=== PATIENT | female | born 1960 | race Caucasian/White ===

== ENCOUNTER → 2019-10-15 09:16 | Outpatient (BNVA) | payer MEDICARE, MEDICAID, SELFPAY | PROVIDERS: Family Provider Nurse Practitioner Family; PCP Nurse Practitioner Family; Referring Provider Family Medicine; Visit Provider Orthopaedic Surgery | DX: M25.562 Pain in left knee (principal) | CPT/HCPCS: 73560; 73565 ==

== ENCOUNTER 2021-03-02 09:10 | Outpatient (CLI) | payer MEDICARE, MEDICAID, SELFPAY ==
--- NOTE | 2021-03-02 | MR_ITS ---
WS: [id number] MRI LUMBAR SPINE NONCONTRAST TECHNIQUE: Sagittal T1, T2 and STIR imaging. Axial T1 and T2 imaging. CLINICAL INFORMATION: BACK PAIN OF LUMBOSACRAL REGION WITH SCIATICA COMPARISON: MRI 2007 FINDINGS: Mild lumbar curve. No acute compression. Disc desiccation worse L5-S1 with endplate degenerative watson ges. This is similar in appearance to 2007. L1-L2: Normal. L2-L3: No significant disc bulging. Mild facet arthropathy. Spinal canal and foramen are patent. L3-L4: Small left foraminal protrusion with mild left foraminal narrowing. Slight encroachment on the exiting left L3 nerve root. Spinal canal and foramen are patent. Moderate facet arthropathy L4-L5: Mild annular bulging. Moderate facet arthropathy. Mild left and no significant right foraminal narrowing. L5-S1: Postoperative changes laminectomy defects. No recurrent disc extrusion. Mild disc bulging with osteophytic ridging unchanged in appearance since 2006. Mild bilateral bony foraminal narrowing. Mil d facet arthropathy. Visualized pelvic bony structures: Normal. Paravertebral soft tissues: Normal. MR/MR lumbar spine wo con* [id number] IMPRESSION: 1. Mild lumbar curve. No acute compression. No high-grade central canal stenos is. 2. Prior postoperative changes laminectomy defects with partial discectomy L5- S1. This is unchanged in appearance since 2006. No recurrent disc extrusion. Mi ld left L5-S1 foraminal narrowing. 3. Tiny left foraminal protrusion L3-4 with mild left foraminal narrowing and slight contact of the exiting left L3 nerve root progressed 4. since 2006. 5. Mild left L4-5 foraminal narrowing. 6. Moderate facet arthropathy L3-L4 and L4-L5.
== END 2021-03-02 09:11 | disposition home or self-care (01) ==
PROVIDERS: PCP Nurse Practitioner Family; Visit Provider Nurse Practitioner Family
DX: M54.40 Lumbago with sciatica, unspecified side (principal); M47.816 Spondylosis without myelopathy or radiculopathy, lumbar region; M51.26 Other intervertebral disc displacement, lumbar region
CPT/HCPCS: 72148

== ENCOUNTER 2021-09-29 09:08 | Outpatient (CLI) | payer MEDICARE, MEDICAID, SELFPAY ==
--- NOTE | 2021-09-29 09:52 | XR_ITS ---
WS: [id number] Lumbar spine, 3 views, 09/29/2021 Clinical Data: LUMBAR RADICULOPATHY Comparison: Lateral lumbar spine, 11/15/2006. Findings: The patient has had a posterior lumbar fusion with bilateral pedicle screws from L3 through S1 with c onnecting rods. There is a laminectomy at L5. Artificial disc spacers are present at L3-L4 and L4-L5. The transverse processes and SI joints are unremarkable. There are minimal anterior osteoarthritic sp urs at L1-L3. XR/XR lumbar spine 2-3V* [id number] Impression: 1. Posterior lumbar fusion L3-S1. 2. Laminectomy at L5 with artificial disc spacers at L3-L4 and L4-L5.
== END 2021-09-29 09:09 | disposition home or self-care (01) ==
PROVIDERS: PCP Nurse Practitioner Family; Visit Provider Nurse Practitioner Family
DX: M54.16 Radiculopathy, lumbar region (principal); T81.89XA Other complications of procedures, not elsewhere classified, initial encounter; M43.27 Fusion of spine, lumbosacral region; M96.1 Postlaminectomy syndrome, not elsewhere classified
CPT/HCPCS: 72100

== ENCOUNTER 2022-09-29 15:37 | Emergency (ER) | payer MEDICARE, MEDICAID, SELFPAY ==
[2022-09-29 15:49] VITALS: BP 112/74; PULSE 88; RESP 18; TEMP 37.2; O2SAT 92; BMI 43.5
--- NOTE | 2022-09-29 15:57 | ED_ITS ---
HPI - Extremity Injury (Lower) General: Chief Complaint: Extremity Injury, Lower Stated Complaint: Right ankle injury Time Seen by Provider: 09/29/22 15:57 Source: patient Mode of arrival: ambulatory (with limp) Limitations: no limitations History of Present Illness: Patient is a 62-year-old female who presents to ED today for evaluation of a right ankle injury that she sustained yesterday after she was walking in the [facility] parking lot and accidentally twisted her ankle. Patient states she is able to ambulate by hobbling . She has no other injuries or complaints at this time. complaint: ankle injury and foot injury Onset (ago): hour(s) Injury: Right: ankle and foot Type of Injury: inversion Place: street/outdoors Severity: moderate Relieving factors: immobilization Exacerbating factors: weight bearing, movement and palpation Associated symptoms: Reports no associated symptoms Other symptoms: none Review of Systems Musc: Reports: extremity pain (R foot), extremity swelling (R foot), joint pain (R ankle) and joint swelling (R ankle) Neuro: Denies: numbness in extremities or sensory changes [facility] ED PFSH: Medical History Arthritis of left knee Family History Father CAD (coronary artery disease) Other Hypertension Social History Smoking and tobacco status: current every day smoker (1ppd X41) cigarettes Alcohol intake: never Current occupational status: disabled Physical Exam Const: COMMON NORMALS: no acute distress, patient oriented x3, no limitations and alert Extremity: GENERAL: Yes normal exam except as noted RIGHT LOWER EXTREMITY: Yes foot & digits and Yes foot & digits OTHER: TTP and swelling noted mainly to R lateral malleolus without obvious deformity; she is tender to R lateral foot with some mild swelling noted here as well; cap refills, sensation, and DP/PT pulses are all normal/intact Neuro: COMMON NORMALS: patient oriented x3, moves all extremities, no focal motor deficits and no sensory deficits noted SENSORIUM/ORIENTATION: Yes alert Skin: TRAUMA: no lacerations or abrasions Course Vital Signs: Vital signs: Vital Signs Temperature 98.9 F 09/29/22 15:49 Pulse Rate 88 09/29/22 15:49 Respiratory Rate 18 09/29/22 15:49 Blood Pressure 112/74 09/29/22 15:49 Pulse Oximetry 92 09/29/22 15:49 Oxygen Delivery Me thod 09/29/22 15:49 MDM - Extremity Injury (Lower) Medical Decision Making Pt with small avulsion fx off lateral malleolus. Will splint and have her follow up with orthopedics. Recommend ice/elevation to help with swelling. Lab Data Radiology Impressions Ankle X-Ray 09/29/22 16:01 IMPRESSION: Soft tissue swelling with 2 small chip fractures arising lateral malleolus. Foot X-Ray 09/29/22 16:01 IMPRESSION: No acute bony abnormalities. Discharge Plan Discharge Patient Disposition: Home Clinical Impression: Avulsion fracture of lateral malleolus of left fibula Qualifiers: Encounter type: initial encounter Fracture type: closed Qualified Code(s): S82.62XA - Displaced fracture of lateral malleolus of left fibula, initial encounter for closed fracture Condition: Stable Prescriptions: New hydrocodone-acetaminophen 5-325 mg tablet 1 tab PO Q6H PRN (Reason: pain) Qty: 12 0RF No Action buspirone 15 mg tablet 15 mg PO BID Qty: 60 4RF Dexilant 60 mg capsule,biphase delayed releas 60 mg PO QDAY Qty: 30 5RF cyclobenzaprine 10 mg tablet 10 mg PO TID Qty: 90 4RF furosemide 20 mg tablet 20 mg PO QAM PRN (Reason: edema) Qty: 30 3RF hydroxyzine HCl 25 mg tablet 25 mg PO TID PRN (Reason: anxiety) Qty: 90 4RF potassium chloride 10 mEq tablet extended release 10 meq PO QDAY PRN (Reason: edema) Qty: 30 3RF venlafaxine 150 mg tablet extended release 24hr 150 mg PO QDAY Qty: 30 4RF Rx Instructions: TAKE WITH 37.5MG venlafaxine 37.5 mg capsule,extended release 24hr 37.5 mg PO QDAY Qty: 30 4RF cholecalciferol (vitamin D3) 1,250 mcg (50,000 unit) capsule 1,250 mcg PO .WEEKLY Qty: 4 4RF gabapentin 600 mg tablet 800 mg PO BID lisinopril 10 mg tablet 10 mg PO DAILY ropinirole 1 mg tablet 3 mg PO QDAY quetiapine 100 mg tablet 300 mg PO .hs fluticasone propionate 50 mcg/actuation spray,suspension 1 spray intranasal DAILY Rx Instructions: administer into each nostril hydrocodone-acetaminophen 5-325 mg tablet 1 tab PO Q8H PRN beclomethasone dipropionate 40 mcg/actuation HFA aerosol inhaler 2 spray intranasal DAILY Rx Instructions: administer into each nostril metoprolol succinate 25 mg tablet extended release 24 hr 12.5 mg PO DAILY Qty: 45 3RF montelukast 10 mg tablet See Rx Instructions .ROUTE .COMPLEX Qty: 30 3RF Dose Instruction: TAKE ONE TABLET BY MOUTH EVERY DAY Rx Instructions: TAKE ONE TABLET BY MOUTH EVERY DAY loratadine 10 mg tablet See Rx Instructions .ROUTE .COMPLEX Qty: 30 0RF Dose Instruction: TAKE ONE TABLET BY MOUTH DAILY Rx Instructions: TAKE ONE TABLET BY MOUTH DAILY Discharge Orders: Discharge ED (Routine); Ordered 09/29/22 Ordered By: Kasey Wray Referrals: Noemi Tinsley APN [Primary Care Provider] - Patient Instructions: Ankle Fracture (DC), Opioid Safety, Pain Management Activity Restrictions/Additional Instructions: As we discussed stay in your splint and use your crutches and/or/walker until seen by orthopedics. Case management should contact you shortly to set you up with this follow-up appointment. Ice and elevate the extremity to help with swelling. Coding Level of Care Code ED Machine Sweeper Brush Maker for Leona Moody
--- NOTE | 2022-09-29 16:01 | XRR_ITS ---
PROCEDURE INFORMATION: Exam: XR Right Ankle Exam date and time: 09/29/2022 4:44 PM Age: 62 years old Clinical indication: Injury or trauma; Fall; Sprain or strain; Ankle; Right; Additional info: Injury/swelling/pain TECHNIQUE: Imaging protocol: Radiologic exam of the right ankle. Views: 3 or more views. COMPARISON: No relevant prior studies available. FINDINGS: Bones/joints: Two small chip fractures arising from the inferior margin lateral malleolus largest of which measures 5 mm situated just lateral to the lateral malleolus. Moderate size calcaneal spurs arise from the posterior plantar margin of the calcaneus. Remaining osseous structures are unremarkable. Soft tissues: Prominent soft tissue swelling adjacent to the lateral malleolus. XR/XR ankle RT min 3V* [id number] IMPRESSION: Soft tissue swelling with 2 small chip fractures arising lateral malleolus.
--- NOTE | 2022-09-29 16:01 | XRR_ITS ---
PROCEDURE INFORMATION: Exam: XR Right Foot Exam date and time: 09/29/2022 4:44 PM Age: 62 years old Clinical indication: Injury or trauma; Fall; Blunt trauma; Foot; Right; Injury date: 09/28/22; Additional info: Injury/pain TECHNIQUE: Imaging protocol: Radiologic exam of the right foot. Views: 3 or more views. COMPARISON: No relevant prior studies available. FINDINGS: Bones/joints: Normal alignment. No fracture. Joint surfaces preserved. Small-moderate size spurs arising from the calcaneus. Soft tissues: Normal. XR/XR foot RT min 3V* [id number] IMPRESSION: No acute bony abnormalities.
--- NOTE | 2022-09-30 08:46 | DCPLANNER ---
Addendum entered by Tiarra Gill 10/07/22 07:47: Patient had a follow up appointment scheduled with ortho - patient did attend appointment. Original Note: manager corporate communications had message to schedule a follow up appointment for patient with ortho. manager corporate communications sent patients information to the front office staff at ortho. Patients information will be printed and reviewed. Clinic will call patient with appointment information.
== END 2022-09-29 17:37 | disposition home or self-care (01) ==
PROVIDERS: Emergency Provider Physician Assistant; PCP Nurse Practitioner Family
DX: S82.62XA Displaced fracture of lateral malleolus of left fibula, initial encounter for closed fracture (principal); F17.210 Nicotine dependence, cigarettes, uncomplicated; X50.1XXA Overexertion from prolonged static or awkward postures, initial encounter
CPT/HCPCS: 73610; 73630; 99283; E0114

== ENCOUNTER 2022-09-30 16:33 | Outpatient (CLI) | payer MEDICARE, MEDICAID, SELFPAY | END 2022-09-30 16:34 | disposition home or self-care (01) | LOC: SPT 16:33 | PROVIDERS: PCP Nurse Practitioner Family; Visit Provider Podiatrist Foot & Ankle Surgery | DX: Z46.89 Encounter for fitting and adjustment of other specified devices (principal); S82.62XD Displaced fracture of lateral malleolus of left fibula, subsequent encounter for closed fracture with routine healing; X58.XXXD Exposure to other specified factors, subsequent encounter; S82.61XA Displaced fracture of lateral malleolus of right fibula, initial encounter for closed fracture; X50.9XXA Other and unspecified overexertion or strenuous movements or postures, initial encounter; R23.4 Changes in skin texture | CPT/HCPCS: 97760; 99204; L4361 ==

== ENCOUNTER → 2022-10-11 13:30 | Outpatient (BNVA) | payer MEDICARE, MEDICAID, SELFPAY | PROVIDERS: PCP Nurse Practitioner Family; Visit Provider Podiatrist Foot & Ankle Surgery | DX: S82.61XD Displaced fracture of lateral malleolus of right fibula, subsequent encounter for closed fracture with routine healing (principal); X58.XXXD Exposure to other specified factors, subsequent encounter; R23.4 Changes in skin texture | CPT/HCPCS: 73610 ==

== ENCOUNTER 2022-10-11 14:46 | Outpatient (CLI) | payer MEDICARE, MEDICAID, SELFPAY | END 2022-10-11 14:47 | disposition home or self-care (01) | LOC: SPT 14:47 | PROVIDERS: PCP Nurse Practitioner Family; Visit Provider Podiatrist Foot & Ankle Surgery | DX: Z46.89 Encounter for fitting and adjustment of other specified devices (principal); S82.61XD Displaced fracture of lateral malleolus of right fibula, subsequent encounter for closed fracture with routine healing; X58.XXXD Exposure to other specified factors, subsequent encounter | CPT/HCPCS: 97760; 99214; L1902 ==

== ENCOUNTER → 2022-11-01 10:10 | Outpatient (BNVA) | payer MEDICARE, MEDICAID, SELFPAY | PROVIDERS: PCP Nurse Practitioner Family; Visit Provider Podiatrist Foot & Ankle Surgery | DX: S82.61XD Displaced fracture of lateral malleolus of right fibula, subsequent encounter for closed fracture with routine healing (principal); X58.XXXD Exposure to other specified factors, subsequent encounter; R23.4 Changes in skin texture | CPT/HCPCS: 73610; 99214 ==

== ENCOUNTER → 2022-11-23 12:51 | Outpatient (BNVA) | payer MEDICARE, MEDICAID, SELFPAY | PROVIDERS: PCP Nurse Practitioner Family; Visit Provider Podiatrist Foot & Ankle Surgery | DX: S82.61XD Displaced fracture of lateral malleolus of right fibula, subsequent encounter for closed fracture with routine healing (principal); R23.4 Changes in skin texture; W18.40XD Slipping, tripping and stumbling without falling, unspecified, subsequent encounter | CPT/HCPCS: 99213 ==

== ENCOUNTER → 2022-12-21 12:54 | Outpatient (BNVA) | payer MEDICARE, MEDICAID, SELFPAY | PROVIDERS: PCP Nurse Practitioner Family; Visit Provider Podiatrist Foot & Ankle Surgery | DX: S82.61XD Displaced fracture of lateral malleolus of right fibula, subsequent encounter for closed fracture with routine healing (principal); R23.4 Changes in skin texture; M21.611 Bunion of right foot; M21.612 Bunion of left foot; W18.40XD Slipping, tripping and stumbling without falling, unspecified, subsequent encounter | CPT/HCPCS: 99214 ==

== ENCOUNTER 2023-01-21 06:45 | Day surgery (SDC) | payer MEDICARE, MEDICAID, SELFPAY ==
[2023-01-20 13:14] VITALS: BMI 44.9
[2023-01-21] VITALS (9 sets, daily range): BP systolic 115–139; BP diastolic 58–87; PULSE 78–86; RESP 15–18; TEMP 36.3–36.6; O2SAT 90–100
--- NOTE | 2023-01-21 | XR_ITS ---
WS: [id number] INTRAOPERATIVE TECHNIQUE: 2 Spot fluoroscopic images for intraoperative purposes. FLUOROSCOPY TIME: 8 seconds Dose: 0.174 mGy CLINICAL INFORMATION: Modified right tamie. OR pic. COMPARISON: None. FINDINGS: Intraoperative changes osteotomy with bunionectomy 1st metatarsal. Localization wires 1st metatarsal head. XR/XR foot RT 2V [id number] IMPRESSION: Images obtained for intraoperative purposes.
--- NOTE | 2023-01-21 06:21 | P.HP_ITS ---
Providers/Chief Complaint Primary Care Provider: Noemi Tinsley APN Chief Complaint: M21.611 History of Present Illness Pleasant 62 YOF patient presenting to the clinic for surgical consultation on her bunion. Right bunion is painful daily.? Is no longer alleviated by wearing wide accommodative shoes, NSAIDs, stretching and orthotics.? Would like to discuss surgical options. She describes pain as sharp stabbing with activities such as standing and walking and everyday living. Patient denies any subjective nausea, vomiting, fever, chills, shortness of breath or chest pain. Review of Systems General: Reports: 10 or more systems reviewed and unremarkable except in HPI and below Const: Denies: fever(s) or chills Card: Denies: chest pain or palpitations Resp: Denies: productive cough GI: Denies: abdominal pain, nausea or vomiting : Denies: flank pain Musc: Reports: extremity swelling, joint pain, joint stiffness, limited range of motion and deformity Skin/Breast: Reports: nail changes and change in hair; Denies: rash or sores Neuro: Reports: numbness in extremities, sensory changes and difficulty walking Psych: Denies: suicidal ideation Christopher/Lymph: Denies: easy bruising Medications/Allergies Home Medications Medication Instructions Recorded Confirmed Last Taken Type buspirone 15 mg tablet 15 mg PO BID #60 tabs 08/29/19 01/20/23 01/20/23 Rx cholecalciferol (vitamin D3) 1,250 1,250 mcg PO .WEEKLY #4 caps 08/29/19 01/20/23 01/19/23 Rx mcg (50,000 unit) capsule cyclobenzaprine 10 mg tablet 10 mg PO TID #90 tabs 08/29/19 01/20/23 01/20/23 Rx dexlansoprazole 60 mg 60 mg PO QDAY #30 caps 08/29/19 01/20/23 01/20/23 Rx capsule,biphase delayed release (Dexilant) furosemide 20 mg tablet 20 mg PO QAM PRN edema #30 tabs 08/29/19 01/20/23 U nknown Rx potassium chloride 10 mEq 10 meq PO QDAY PRN edema #30 tabs 08/29/19 01/20/23 Unknown Rx tablet,extended release venlafaxine 150 mg tablet,extended 150 mg PO QDAY #30 tabs 08/29/19 01/20/23 01/20/23 Rx release 24 hr venlafaxine 37.5 mg 37.5 mg PO QDAY #30 caps 08/29/19 01/20/23 01/20/23 Rx capsule,extended release 24 hr beclomethasone dipropionate 40 2 spray intranasal DAILY 06/23/21 01/20/23 Unknown History mcg/actuation nasal HFA inhaler fluticasone propionate 50 1 spray intranasal DAILY 06/23/21 01/20/23 Unknown History mcg/actuation nasal spray,suspension gabapentin 600 mg tablet 800 mg PO BID 06/23/21 01/20/23 01/20/23 History metoprolol succinate 25 mg 12.5 mg PO DAILY #45 tabs 06/23/21 01/20/23 01/20/23 Rx tablet,extended release 24 hr quetiapine 100 mg tablet 300 mg PO DAILY 06/23/21 01/20/23 01/20/23 History ropinirole 1 mg tablet 3 mg PO QDAY 06/23/21 01/20/23 01/19/23 History Cam Boot to the Right #1 ea 09/30/22 12/21/22 Unknown Rx ASO to the right #1 ea 10/11/22 12/21/22 Unknown Rx mupirocin 2 % topical ointment 1 applic topical TID #22 grams 10/11/22 01/20/23 Unknown Rx loratadine 10 mg tablet 10 mg PO DAILY 01/20/23 01/20/23 01/20/23 History Allergies Allergy/AdvReac Type Severity Reaction Status Date / Time adhesive Allergy Mild Unknown Verified 01/20/23 13:24 Penicillins Allergy rash Verified 01/20/23 13:06 PFSH PFSH: Medical History Arthritis of left knee Family History Father CAD (coronary artery disease) Other Hypertension Social History Smoking and tobacco status: current every day smoker (1ppd X41) cigarettes Alcohol intake: never Substance/Drug Use: never Current occupational status: disabled Vital Signs Weight: Weight last 48 hrs Weight 278 lb Physical Exam Narrative: EXAM NARRATIVE: Patient is alert and oriented ?3 and in no acute distress.? The following is a focused bilateral lower extremity exam. VASCULAR: Dorsalis pedis and posterior tibial arteries palpable +2.? Capillary refill time less than 3 seconds to the distal hallux bilaterally. Calf is supple and nontender proximally and distally.? No pedal edema appreciated.? Pedal hair growth present. NEUROLOGICAL: Epicritic and protopathic sensations grossly intact to the lower extremities.? +2 Achilles tendon reflex noted bilaterally.? Negative Tinel sign upon percussion of lower extremity nerves. DERMATOLOGICAL: No open wounds to the bilateral lower extremity.? Previously documented fissure at the right heel is healed. MUSCULOSKELETAL: No pain to palpation at the distal aspect of the right lateral malleolus.? Negative anterior drawer sign and negative talar tilt test to the right ankle.? No palpable mass along the course of the plantar fascia appreciated.? No pain to palpation along the course of the bilateral Achilles tendon.? No pain to palpation along the course posterior tibial tendon or per murphy tendons.? No pain with pizx-en-smth compression of calcaneus, bilaterally.? Muscle strength is 5/5 in all 3 cardinal planes pain-free without guarding to the foot and ankle, bilaterally.? Bunion right greater than left.? Pain to palpation at the medial aspect of the first metatarsal phalangeal joint osseous prominence at the right foot.? Right hallux is not track bound.? First metatarsal phalangeal joint dorsiflexion is 50 degrees to the right foot. CARDIOVASCULAR: S1, S2, normal rate, normal rhythm.? Dorsalis pedis and posterior tibial arteries palpable. LUNGS: Clear to auscltation, no use of acessory muscles, no crackles or wheezes. A&P Assessment and plan (1) Bilateral bunions: (2) Right foot pain: Plan Patient would like to discuss surgical options for her right bunion.? No longer responding to conservative treatments as listed in HPI.? I reviewed at length with the patient, the risks, potential complications, benefits, alternatives, expectations, and typical outcomes associated with the surgery. The risks and potential complications were explained in detail, including but not limited to infection, wound dehiscence or soft tissue complications, bleeding and hematoma, chronic edema, neuritis or nerve damage producing numbness or chronic pain, CRPS, failure to relieve pain or worsening pain, thick / painful / unsightly scar, limited motion / stiffness, malposition, delayed union, malunion, or nonunion, fracture, reaction to implants, anesthetic complications, venous thromboembolism, and deformity recurrence.? I discussed the notion of no regrets with the patient as it pertains to complications and outcomes. The patient seemed to understand the nature of the proposed care and required convalescence. They asked appropriate questions, answered to their satisfaction. They are aware no guarantees can be made as to a satisfactory outcome and they understand there may be other possible unforeseen complications or outcomes not listed here that will be treated accordingly if they arise. There were no written or implied guarantees given to the patient. They gave informed consent to proceed. Right Henderson/Sha scheduled January 21. Outpatient, braden CAICEDO, supine, 60 minutes. Coding Level of Care Code Acute Code for Chg Fwd Diagnoses Bilateral bunions M21.611; M21.612 Right foot pain M79.671
[2023-01-21] MEDS: sodium chloride 0.9% 1,000 ML 30 ML IV (07:15)
--- NOTE | 2023-01-21 07:58 | P.OP_ITS ---
Operative Report Date of procedure: January 21, 2023 Pre-op diagnosis: Right bunion Post-op diagnosis: Same Procedure done: Modified right Santiago bunionectomy [id number] Implants: 3.0 millimeter screw, 3-0 Vicryl, 4-0 Vicryl, 4 nylon Surgeon: Hu Pulido D.P.M. Daytime Babysitter: Tammy Coronado Estimated blood loss: Less than 5 35 IV fluids: 0 Urine output: None Complications: None Brief History: Patient would like to discuss surgical options for her right bunion.? No longer responding to conservative treatments as listed in HPI.? I reviewed at length with the patient, the risks, potential complications, benefits, alternatives, expectations, and typical outcomes associated with the surgery. The risks and potential complications were explained in detail, including but not limited to infection, wound dehiscence or soft tissue complications, bleeding and hematoma, chronic edema, neuritis or nerve damage producing numbness or chronic pain, CRPS, failure to relieve pain or worsening pain, thick / painful / unsightly scar, limited motion / stiffness, malposition, delayed union, malunion, or nonunion, fracture, reaction to implants, anesthetic complications, venous thromboembolism, and deformity recurrence.? I discussed the notion of no regrets with the patient as it pertains to complications and outcomes. The patient seemed to understand the nature of the proposed care and required convalescence. They asked appropriate questions, answered to their satisfaction. They are aware no guarantees can be made as to a satisfactory outcome and they understand there may be other possible unforeseen complications or outcomes not listed here that will be treated accordingly if they arise. There were no written or implied guarantees given to the patient. They gave informed consent to proceed. Procedure: Under mild sedation the patient was brought to the operating room and remained o n the gurney in supine position. A timeout was performed. Anesthesia was then administered by the anesthesia service. Local anesthesia was injected by myself consisting of 20 cc of 0.5% Marcaine plain in a right Wright block fashion. Additional 10 cc of Exparel administered in a grid like fashion subcutaneously proximal to the operative site. Well-padded pneumatic tourniquet was applied to the right ankle. The right lower extremity was scrubbed, prepped and draped utilizing normal aseptic technique. The right foot was exanguinated with an Esmarch bandage and the tourniquet inflated to 250 mmHg. Attention was directed to the right foot where hallux valgus was appreciated with osseous prominence at the first metatarsal phalangeal joint. A stab incision was performed at the right first intermetatarsal space at the level of lateral flare of the proximal phalanx base and a lateral release was performed followed by saline flush and closure of skin with 4-0 nylon. Attention was then directed to the dorsal medial aspect of the right first metatarsal phalangeal joint where a linear longitudinal incision was made medial and parallel to the extensor hallucis longus tendon. Incision was carried down through subcutaneous tissue to the layer of joint capsule utilizing sharp and blunt technique. Care was taken to retract and preserve neurovascular and tendinous structures. All bleeders were ligated and cauterized as necessary. Linear capsular incision was performed in the bony hypertrophy at the medial aspect of the right first metatarsal head was resected utilizing a sagittal saw. A K wire was inserted from medial to lateral within the first metatarsal head to act as an access guide. Sagittal saw was then utilized to perform a modified chevron osteotomy with the apex oriented distally through and through from medial to lateral to first metatarsal head. The first metatarsal head was translated and impacted onto the first metatarsal laterally in a more anatomically corrected position and temporary fixated followed by screw fixation with 3.0 screw oriented from dorsal proximal to plantar distal, stress riser was encountered and the screw was removed and passed from the operative field. A second screw was then oriented utilizing standard AO technique from dorsal distal to proximal plantar with excellent bony apposition and compression noted. No stress riser was encountered with this screw fixation. Temporary fixation was removed, remaining medial shelf was transected and all rough edges were smoothed utilizing a hand rasp. The incision was irrigated with copious amounts of sterile saline solution. Intraoperative fluoroscopy in the AP, oblique and lateral view confirmed that the hardware did not violate the articular surface. There was smooth range of motion appreciated at the right first metatarsal phalangeal joint. The incision was then irrigated further with saline solution and the capsular structure was debulked and closed utilizing 3-0 Vicryl, subcutaneous tissue reapproximated 4-0 Vicryl and skin with 4-0 nylon. The incision was dressed with Adaptic, sterile 4 x 4's, Kerlix and Garth wrap. Cam boot was applied to the right lower extremity and the tourniquet was deflated with a prompt hyperemic response noted to the distal digits of the right foot. Patient tolerated the procedure and anesthesia well and was transferred to the PACU with vital signs stable and vascular status intact. Following a period of postoperative monitoring she will be discharged home was given at home care instructions, scheduled follow-up and my cell phone number to contact with any postoperative questions or concerns.
--- NOTE | 2023-01-21 07:58 | W.PM.OPSUD ---
Surgery/Procedure H&P Update DATE OF PROCEDURE: January 21, 2023 DATE H&P PERFORMED: 01/21/23 CHANGES TO PREVIOUS DOCUMENTATION: none PREOP DIAGNOSIS: Right bunion PLANNED PROCEDURE: Operation Date: 01/21/23 08:25 Proposed Procedures p ?Modified right Santiago and Sha bunionectomy 84910,M21.611(Right) - Hu Pulido DPM s Sha Bunionectomy(Right) - Hu Pulido DPM
[2023-01-21] MEDS: clindamycin 600 MG/50 ML PREMIX 100 MG IV (08:09)
--- NOTE | 2023-01-21 09:03 | P.ANESASSM_ITS ---
Pre-Anesthetic Assessment Height/Weight: Height 1.68 m Weight 126.099 kg O2 Del Method Room Air 01/21/23 07:05 Preop Diagnosis: Right bunion Operation Date: 01/21/23 08:25 Proposed Procedures p ?Modified right Santiago and Sha bunionectomy 31304,M21.611(Right) - Hu uPlido DPM s Sha Bunionectomy(Right) - Hu Pulido DPM Familial anesthetic complications: none Was Beta Preston taken within 24 hours: N/A Was Clonidine taken within 24 hours: N/A Last intake: Intake Last Liquid Date 01/20/23 Last Liquid Time 19:00 Last Solid Date 01/20/23 Last Solid Time 19:00 Social Tobacco and No alcohol Exam alert, oriented x 3 and regular rate & rhythm Airway Submandibular: within normal limits Cervical ROM: within normal limits Mallampati: Class II Dentition: false Pulmonary Chronic Obstructive Pulmonary Disease GI Gastroesophageal Reflux Disease Metabolic Morbid Obesity [facility] [place] Osteoarthritis/DJD Neuropsych Anxiety and Depression Anesthetic Plan ASA status: 3 Anesthesia: Choice Medications/Allergies Home Medications Medication Instructions Recorded Confirmed Last Taken Type buspirone 15 mg tablet 15 mg PO BID #60 tabs 08/29/19 01/20/23 01/20/23 Rx cholecalciferol (vitamin D3) 1,250 1,250 mcg PO .WEEKLY #4 caps 08/29/19 01/20/23 01/19/23 Rx mcg (50,000 unit) capsule cyclobenzaprine 10 mg tablet 10 mg PO TID #90 tabs 08/29/19 01/20/23 01/20/23 Rx dexlansoprazole 60 mg 60 mg PO QDAY #30 caps 08/29/19 01/20/23 01/20/23 Rx capsule,biphase delayed release (Dexilant) furosemide 20 mg tablet 20 mg PO QAM PRN edema #30 tabs 08/29/19 01/20/23 Unknown Rx potassium chloride 10 mEq 10 meq PO QDAY PRN edema #30 tabs 08/29/19 01/20/23 Unknown Rx tablet,extended release venlafaxine 150 mg tablet,extended 150 mg PO QDAY #30 tabs 08/29/19 01/20/23 01/20/23 Rx release 24 hr venlafaxine 37.5 mg 37.5 mg PO QDAY #30 caps 08/29/19 01/20/23 01/20/23 Rx capsule,extended release 24 hr beclomethasone dipropionate 40 2 spray intranasal DAILY 06/23/21 01/20/23 Unknown History mcg/actuation nasal HFA inhaler fluticasone propionate 50 1 spray intranasal DAILY 06/23/21 01/20/23 Unknown History mcg/actuation nasal spray,suspension gabapentin 600 mg tablet 800 mg PO BID 06/23/21 01/20/23 01/20/23 History metoprolol succinate 25 mg 12.5 mg PO DAILY #45 tabs 06/23/21 01/20/23 01/20/23 Rx tablet,extended release 24 hr quetiapine 100 mg tablet 300 mg PO DAILY 06/23/21 01/20/23 01/20/23 History ropinirole 1 mg tablet 3 mg PO QDAY 06/23/21 01/20/23 01/19/23 History Cam Boot to the Right #1 ea 09/30/22 12/21/22 Unknown Rx ASO to the right #1 ea 10/11/22 12/21/22 Unknown Rx mupirocin 2 % topical ointment 1 applic topical TID #22 grams 10/11/22 01/20/23 Unknown Rx loratadine 10 mg tablet 10 mg PO DAILY 01/20/23 01/20/23 01/20/23 History Allergies Allergy/AdvReac Type Severity Reaction Status Date / Time adhesive Allergy Mild Unknown Verified 01/20/23 13:24 Penicillins Allergy rash Verified 01/20/23 13:06 Current Medications Generic Name Dose Route Start Last Admin Trade Name Freq PRN Reason Stop Dose Admin Sodium Chloride 1,000 mls @ 30 mls/hr 01/21/23 07:00 01/21/23 07:15 Sodium Chloride 0.9% IV 01/22/23 06:59 30 mls/hr .Q24H SIVA Administration PFSH Anesthesia Medical History Arthritis of left knee Family History Father CAD (coronary artery disease) Other Hypertension Social History Smoking and tobacco status: current every day smoker (1ppd X41) cigarettes Alcohol intake: never Substance/Drug Use: never Current occupational status: disabled Data Anesthesia Cardiac Studies: Cardiac Event Monitor 06/02/21
--- NOTE | 2023-01-21 09:12 | PC.NURSE ---
Pt arrived to PACU, resting comfortably, O2 at 6L/min via simple mask in place. Dressing and boot to right foot C/D/I, right toes p/w/d, cap refill < 3 seconds. FOB elevated.
--- NOTE | 2023-01-21 09:25 | PC.NURSE ---
O2 sats between 90-92% on room air, wheezing noted. New orders received and nebulizer administered. Will monitor for effectiveness.
[2023-01-21] MEDS: albuterol 2.5 mg/3 mL Neb INHALATION (09:28)
--- NOTE | 2023-01-21 14:07 | ANE.PACU2 ---
Inpatient post-anesthesia follow up: Airway intact: Yes Vital signs: Temperature 98 F Pulse Rate 85 Respiratory Rate 16 Blood Pressure 120/68 Pulse Oximetry 95 Oxygen Delivery Me thod Room Air Oxygen Flow Rate 6 Fraction of Inspir ed Oxygen Hydration adequate: Yes Nausea and vomiting: No Pain level: 2 Mental status: Baseline
== END 2023-01-21 10:27 | disposition home or self-care (01) ==
PROVIDERS: PCP Nurse Practitioner Family; Visit Provider Podiatrist Foot & Ankle Surgery
PROC: (CPT 28296; principal; 2023-01-21 08:15)
DX: M21.611 Bunion of right foot (principal); F17.210 Nicotine dependence, cigarettes, uncomplicated; J44.9 Chronic obstructive pulmonary disease, unspecified; K21.9 Gastro-esophageal reflux disease without esophagitis; E66.01 Morbid (severe) obesity due to excess calories; Z68.41 Body mass index [BMI] 40.0-44.9, adult; F32.A Depression, unspecified; F41.9 Anxiety disorder, unspecified
CPT/HCPCS: 28299; 73620; 76000; C1713; C9290; J2704; J3010; J3490; J7030; J7613

== ENCOUNTER → 2023-02-07 15:14 | Outpatient (BNVA) | payer MEDICARE, MEDICAID, SELFPAY | PROVIDERS: PCP Nurse Practitioner Family; Visit Provider Podiatrist Foot & Ankle Surgery | DX: Z98.890 Other specified postprocedural states (principal); M21.611 Bunion of right foot | CPT/HCPCS: 73630; 99024 ==

== ENCOUNTER → 2023-02-21 13:25 | Outpatient (BNVA) | payer MEDICARE, MEDICAID, SELFPAY | PROVIDERS: PCP Nurse Practitioner Family; Visit Provider Podiatrist Foot & Ankle Surgery | DX: Z98.890 Other specified postprocedural states (principal); M21.611 Bunion of right foot | CPT/HCPCS: 73630; 99024 ==

== ENCOUNTER → 2023-03-07 15:29 | Outpatient (BNVA) | payer MEDICARE, MEDICAID, SELFPAY | PROVIDERS: PCP Nurse Practitioner Family; Visit Provider Podiatrist Foot & Ankle Surgery | DX: Z98.890 Other specified postprocedural states (principal); M21.611 Bunion of right foot | CPT/HCPCS: 73630; 99024 ==

== ENCOUNTER → 2023-06-06 09:29 | Outpatient (BNVA) | payer MEDICARE, MEDICAID, SELFPAY | PROVIDERS: PCP Nurse Practitioner Family; Visit Provider Podiatrist Foot & Ankle Surgery | DX: M21.612 Bunion of left foot (principal); M20.42 Other hammer toe(s) (acquired), left foot | CPT/HCPCS: 99214 ==

== ENCOUNTER 2023-06-10 07:08 | Day surgery (SDC) | payer MEDICARE, MEDICAID, SELFPAY ==
[2023-06-10] VITALS (7 sets, daily range): BP systolic 94–117; BP diastolic 52–70; PULSE 75–84; RESP 16–18; TEMP 36.2–36.8; O2SAT 92–97; BMI 43.5
--- NOTE | 2023-06-10 | XRR_ITS ---
PROCEDURE INFORMATION: Exam: XR Left Foot Exam date and time: 06/10/2023 9:35 AM Age: 63 years old Clinical indication: Condition or disease; Other: Bunectomy; Additional info: Left foot, bunectomy, or pic TECHNIQUE: Imaging protocol: Radiologic exam of the left foot. Views: 1 or 2 views. COMPARISON: No relevant prior studies available. FINDINGS: Bones/joints: A single AP view was obtained of the distal left foot including mid to distal metatarsals and phalanges. Postsurgical changes of bunionectomy at the distal 1st metatarsal with screw fixation. Satisfactory or anatomic alignment and position. No other significant osseous or joint space abnormality. Soft tissues: Mild soft tissue swelling. XR/XR foot LT 2V [id number] IMPRESSION: Postsurgical changes of the left distal 1st metatarsal related to bunionectomy, as noted above.
--- NOTE | 2023-06-10 06:43 | P.HPUD_ITS ---
Surgery/Procedure H&P Update DATE OF PROCEDURE: June 10, 2023 DATE H&P PERFORMED: 01/21/23 H&P UPDATE INFORMATION: I have reviewed H&P completed within last 30 days, I have examined patient prior to procedure, No changes to prior documentation and H&P is in [facility] [place] EMR on date indicated PLANNED PROCEDURE: Operation Date: 06/10/23 08:40 Proposed Procedures p Left bunionectomyAustin [id number],M21.612,m20.42,m24.575(Left) - Hu Pulido DPM s double osteotomyAkin(Left) - Hu Pulido DPM s Flexor tendon transfer left foot(Left) - Hu Pulido DPM s Left second hammertoe correction?(Left) - Hu Pulido DPM
--- NOTE | 2023-06-10 06:43 | PM.OP ---
Operative Report Date of procedure: June 10, 2023 Pre-op diagnosis: Left bunion Left hallux valgus Left second hammertoe Flexor tendon contracture left foot Post-op diagnosis: Same Procedure done: Modified Santiago bunionectomy, left foot. CPT code 86065 Left foot flexor tendon transfer. CPT code 01432 Left second hammertoe correction. CPT code 73398 Implants: 3-0 Vicryl, 4-0 Vicryl, 4-0 nylon Wilbur hammer tube Wilbur 3 mm headed partially-threaded cannulated screw Specimens removed/disposition: None Pathology: None Surgeon: Hu Pulido DPM Emblem Drawer In: Amie Estimated blood loss: 5 33 IV fluids: 0 Urine output: 0 Complications: None Brief History: Established 63 year old female patient presenting to clinic to update H&P for her surgery on 06/10/23.? Patient reports she is going to have her bunion to left surgically fixed.? Patient is scheduled for an left bunionectomy and second hammertoe correction this Tuesday.? Has pain daily, has failed conservative treatments of accommodative shoe gear, padding, spacing, activity modifications, orthotics, stretching and NSAIDs. I reviewed at length with the patient, the risks, potential complications, benefits, alternatives, expectations, and typical outcomes associated with the surgery. The risks and potential complications were explained in detail, including but not limited to infection, wound dehiscence or soft tissue complications, bleeding and hematoma, chronic edema, neuritis or nerve damage producing numbness or chronic pain, CRPS, failure to relieve pain or worsening pain, thick / painful / unsightly scar, limited motion / stiffness, malposition, delayed union, malunion, or nonunion, fracture, reaction to implants, anesthetic complications, venous thromboembolism, and deformity recurrence.? I discussed the notion of no regrets with the patient as it pertains to complications and outcomes. The patient seemed to understand the nature of the proposed care and required convalescence. They asked appropriate questions, answered to their satisfaction. They are aware no guarantees can be made as to a satisfactory outcome and they understand there may be other possible unforeseen complications or outcomes not listed here that will be treated accordingly if they arise. There were no written or implied guarantees given to the patient. They gave informed consent to proceed. Planned procedure left modified Santiago bunionectomy with possible Sha osteotomy, left second hammertoe correction with arthrodesis of the PIPJ and flexor tendon transfer. Procedure: Under mild sedation patient was brought to the operating room and remained on the gurney in supine position. A timeout was performed. Anesthesia was then administered by the anesthesia service. Local anesthesia was injected by myself consisting of 20 cc of 0.5% Marcaine plain in a Wright block and second ray block fashion to the left foot. Additional 10 cc of Exparel was infiltrated at the operative site subcutaneously in a grid like fashion. Well-padded pneumatic tourniquet was applied to the left high calf. The left lower extremity was then scrubbed, prepped and draped utilizing normal aseptic technique. Attention to was directed the bunion deformity at the left foot. A dorsomedial incision was made over the first metatarsophalangeal joint of the left foot. Careful dissection was carried out, preserving the dorsal sensory nerve. The prominent bunion deformity was exposed, and an osteotomy of the first metatarsal head was performed using a surgical saw. This allowed for realignment of the metatarsal head to correct the valgus deformity. Temporary fixation was applied while preparing for the permanent fixation. A Wilbur 3 mm screw was then utilized to securely fix the osteotomy. The position and stability of the screw were confirmed with fluoroscopy, ensuring proper alignment and fixation. Attention was then turned to the soft tissue balancing. The extensor hallucis brevis tendon was identified and released to balance the dorsal aspect of the joint. Additionally, a lateral release was performed due to the tightness of the lateral structures, taking care to protect the lateral sesamoid. Intraoperative C arm confirmed hardware did not violate the left first metatarsal phalangeal joint on the AP, oblique and lateral views. Smooth range of motion of the left first metatarsal for joint was appreciated intraoperatively. The incision was irrigated with saline solution and closed in a layered fashion with capsule closed with 3-0 Vicryl, subcutaneous tissue with 4-0 Vicryl and skin with 4-0 nylon. Attention was directed to the dorsum of the left second toe, second toe had a sagittal plane contracture. Dorsal incision made over the proximal interphalangeal joint of the left second toe. Dissection was carried down to the extensor apparatus, and care was taken to protect the neurovascular structures. The extensor tendon was identified and retracted to expose the joint. A capsulotomy was performed to further expose the joint, and the head of the proximal phalanx was resected to correct the hammertoe deformity. Attention was then turned to the flexor tendon transfer. A plantar incision was made, and the flexor tendon was identified. The tendon was dissected free and rerouted dorsally to the base of the proximal phalanx. The tendon was then secured in its new position using sutures, effectively transferring the flexor tendon to the dorsal aspect of the toe. Attention was then directed to the head of the proximal phalanx of the left second toe which was transected and the base of the intermediate phalanx was transected and irrigation was performed. Arthrodesis of the left second proximal interphalangeal joint was obtained with a intramedullary implant provided by Wilbur this was a hammer tube with 10 degrees of plantarflexion compression arthrodesis site. Excellent to get the second toe was appreciated. Left second toe incision was irrigated with copious amounts of sterile skin solution. Dorsal capsule and extensor tendon were reapproximated utilizing 4-0 Vicryl, skin with 4-0 nylon. Incision sites were dressed with Adaptic, sterile 4 x 4's, Kerlix and Garth wrap followed by a cam boot. Tourniquet was deflated and a prompt hyperemic response was noted to the distal digits of the left foot. Patient tolerated the procedure and anesthesia well and was transferred to the PACU with vital signs stable and vascular status intact. Following a period of postoperative monitoring she will be discharged home. May have limited weightbearing with a cam boot. Was given at home care instructions, scheduled follow-up and my cell phone number to contact me with any postoperative questions or concerns.
[2023-06-10] MEDS: sodium chloride 0.9% 1,000 ML 30 ML IV (08:10)
[2023-06-10] MEDS: scopolamine 1.5 Patch 1 PATCH TRANSDERMA (08:17)
--- NOTE | 2023-06-10 08:43 | P.ANESASSM_ITS ---
Pre-Anesthetic Assessment Height/Weight: Height 1.68 m Weight 122.47 kg Temp Pulse Resp BP Pulse Ox O2 Del Method 97.4 F L 82 18 108/66 94 Room Air 06/10/23 07:29 06/10/23 07:29 06/10/23 07:29 06/10/23 07:29 06/10/23 07:29 06/10/23 07:33 Preop Diagnosis: Left bunion and hammertoe Operation Date: 06/10/23 08:40 Proposed Procedures p [place] [id number],M21.612,m20.42,m24.575(Left) - MARK Colvin double osteotomyAkin(Left) - MARK Colvin Flexor tendon transfer left foot(Left) - MARK Colvin Left second hammertoe correction?(Left) - Hu Pulido DPM Familial anesthetic complications: none Was Beta Preston taken within 24 hours: N/A Was Clonidine taken within 24 hours: N/A Last intake: Intake Last Liquid Date 06/09/23 Last Liquid Time 20:00 Last Solid Date 06/09/23 Last Solid Time 15:00 Social Tobacco and No alcohol Exam alert, oriented x 3 and regular rate & rhythm Airway Submandibular: within normal limits Cervical ROM: within normal limits Mallampati: Class II Dentition: false Pulmonary Chronic Obstructive Pulmonary Disease CV/HEM Hypertension GI Gastroesophageal Reflux Disease Metabolic Hyperlipidemia and Morbid Obesity [facility] [place] Osteoarthritis/DJD Neuropsych Anxiety, Depression and Neuropathy Anesthetic Plan ASA status: 3 Anesthesia: Choice Medications/Allergies Home Medications Medication Instructions Recorded Confirmed Last Taken Type buspirone 15 mg tablet 15 mg PO BID #60 tabs 08/29/19 06/09/23 06/09/23 Rx cholecalciferol (vitamin D3) 1,250 1,250 mcg PO .WEEKLY #4 caps 08/29/19 06/06/23 01/19/23 Rx mcg (50,000 unit) capsule cyclobenzaprine 10 mg tablet 10 mg PO TID #90 tabs 08/29/19 06/09/23 06/09/23 Rx dexlansoprazole 60 mg 60 mg PO QDAY #30 caps 08/29/19 06/09/23 06/09/23 Rx capsule,biphase delayed release (Dexilant) furosemide 20 mg tablet 20 mg PO QAM PRN edema #30 tabs 08/29/19 06/10/23 06/03/23 Rx potassium chloride 10 mEq 10 meq PO QDAY PRN edema #30 tabs 08/29/19 06/10/23 06/03/23 Rx tablet,extended release venlafaxine 150 mg tablet,extended 150 mg PO QDAY #30 tabs 08/29/19 06/09/23 06/09/23 Rx release 24 hr beclomethasone dipropionate 40 2 spray intranasal DAILY 06/23/21 06/09/23 Unknown History mcg/actuation nasal HFA inhaler fluticasone propionate 50 1 spray intranasal DAILY 06/23/21 06/10/23 06/08/23 History mcg/actuation nasal spray,suspension gabapentin 600 mg tablet 800 mg PO BID 06/23/21 06/09/23 06/09/23 History metoprolol succinate 25 mg 12.5 mg PO DAILY #45 tabs 06/23/21 06/09/23 06/09/23 Rx tablet,extended release 24 hr quetiapine 100 mg tablet 300 mg PO DAILY 06/23/21 06/09/23 06/09/23 History mupirocin 2 % topical ointment 1 applic topical TID #22 grams 10/11/22 06/09/23 Unknown Rx loratadine 10 mg tablet 10 mg PO DAILY 01/20/23 06/09/23 06/09/23 History Allergies Allergy/AdvReac Type Severity Reaction Status Date / Time adhesive Allergy Mild Unknown Verified 06/06/23 09:48 Penicillins Allergy rash Verified 06/06/23 09:48 Current Medications Generic Name Dose Route Start Last Admin Trade Name Freq PRN Reason Stop Dose Admin Sodium Chloride 1,000 mls @ 30 mls/hr 06/10/23 07:15 06/10/23 08:10 Sodium Chloride 0.9% IV 06/11/23 07:14 30 mls/hr .Q24H SIVA Administration PFSH Anesthesia Medical History Arthritis of left knee Family History Father CAD (coronary artery disease) Other Hypertension Social History Smoking and tobacco/nicotine status: current every day tobacco/nicotine user (1ppd X41) cigarettes Alcohol intake: never Substance/Drug Use: never Current occupational status: disabled Data Anesthesia Cardiac Studies: Cardiac Event Monitor 06/02/21
[2023-06-10] MEDS: clindamycin 600 MG/50 ML PREMIX 100 MG IV (09:07)
[2023-06-10] MEDS: BUPivacaine 0.5% INJ 30 mL 20 ML INJECTION (09:18)
[2023-06-10] MEDS: BUPivacaine liposome 13.3 mg/mL SDV 10 mL 266 MG INJECTION (09:18)
--- NOTE | 2023-06-10 10:00 | W.PM.BPON ---
Date of Procedure: 06/10/23 Surgeon: Hu Pulido DPM District Manager Postal Service(s): Jaquan JAVED Procedure(s) performed: Left Santiago bunionectomy and left second hammertoe correction. Findings of the procedure(s): none Estimated blood loss: 5 Specimen(s) removed: none Post-operative diagnosis: Left foot bunion, left second hammertoe
--- NOTE | 2023-06-10 12:47 | ANE.PACU2 ---
Inpatient post-anesthesia follow up: Airway intact: Yes Vital signs: Temperature 98.2 F Pulse Rate 84 Respiratory Rate 16 Blood Pressure 112/70 Pulse Oximetry 96 Oxygen Delivery Me thod Room Air Oxygen Flow Rate Fraction of Inspir ed Oxygen Hydration adequate: Yes Nausea and vomiting: No Pain level: 1 Mental status: Baseline
== END 2023-06-10 11:20 | disposition home or self-care (01) ==
PROVIDERS: PCP Nurse Practitioner Family; Visit Provider Podiatrist Foot & Ankle Surgery
PROC: (CPT 28296; principal; 2023-06-10 08:30)
PROC: (CPT 27691; 2023-06-10 08:30)
PROC: (CPT 28285; 2023-06-10 08:30)
DX: M20.32 Hallux varus (acquired), left foot (principal); M20.42 Other hammer toe(s) (acquired), left foot; M62.472 Contracture of muscle, left ankle and foot; M21.611 Bunion of right foot; M21.612 Bunion of left foot; J44.9 Chronic obstructive pulmonary disease, unspecified; I10 Essential (primary) hypertension; K21.9 Gastro-esophageal reflux disease without esophagitis; E78.5 Hyperlipidemia, unspecified; E66.01 Morbid (severe) obesity due to excess calories; Z68.41 Body mass index [BMI] 40.0-44.9, adult; F17.210 Nicotine dependence, cigarettes, uncomplicated
CPT/HCPCS: 27691; 28285; 28296; 73620; 76000; C1713; C9290; J2704; J3010; J3490; J7030

== ENCOUNTER → 2023-06-22 09:29 | Outpatient (BNVA) | payer MEDICARE, MEDICAID, SELFPAY | PROVIDERS: PCP Nurse Practitioner Family; Visit Provider Podiatrist Foot & Ankle Surgery | DX: Z98.890 Other specified postprocedural states (principal); Z47.89 Encounter for other orthopedic aftercare | CPT/HCPCS: 73630; 97760; 99024; L3100 ==

== ENCOUNTER 2023-06-22 11:20 | Outpatient (CLI) | payer MEDICARE, MEDICAID, SELFPAY | END 2023-06-22 11:21 | disposition home or self-care (01) | LOC: SPT 11:21 | PROVIDERS: PCP Nurse Practitioner Family; Visit Provider Podiatrist Foot & Ankle Surgery | DX: Z47.89 Encounter for other orthopedic aftercare (principal) | CPT/HCPCS: 97760; L3100 ==

== ENCOUNTER → 2023-07-21 13:18 | Outpatient (BNVA) | payer MEDICARE, MEDICAID, SELFPAY | PROVIDERS: PCP Nurse Practitioner Family; Visit Provider Podiatrist Foot & Ankle Surgery | DX: Z98.890 Other specified postprocedural states (principal); M79.672 Pain in left foot; S92.502D Displaced unspecified fracture of left lesser toe(s), subsequent encounter for fracture with routine healing; X58.XXXD Exposure to other specified factors, subsequent encounter | CPT/HCPCS: 73630; 99024; 99213 ==

== ENCOUNTER 2023-08-19 06:48 | Day surgery (SDC) | payer MEDICARE, MEDICAID, SELFPAY ==
[2023-08-19] VITALS (7 sets, daily range): BP systolic 100–149; BP diastolic 62–85; PULSE 76–87; RESP 16–17; TEMP 36.6–36.8; O2SAT 96–100; BMI 43.5
--- NOTE | 2023-08-19 | XR_ITS ---
WS: [id number] XR foot LT 2V [id number] REASON FOR EXAM: DORIAN PICS FINDINGS: Longitudinal pinning of the 3 phalanges of the left foot with DIP and PIP arthrodesis. Surgical appliances is intact and in proper position and alignment. Normal arthrodesis bone and joint alignment. IMPRESSION: Marginal to no pinning of the second toe without abnormality.
[2023-08-19] MEDS: sodium chloride 0.9% 1,000 ML 30 ML IV (07:25)
--- NOTE | 2023-08-19 07:31 | P.HPUD_ITS ---
Surgery/Procedure H&P Update DATE OF PROCEDURE: August 19, 2023 DATE H&P PERFORMED: 07/21/23 H&P UPDATE INFORMATION: I have reviewed H&P completed within last 30 days, I have examined patient prior to procedure, No changes to prior documentation and [place] is in [facility] date indicated PREOP DIAGNOSIS: Painful hardware and left second toe fracture PLANNED PROCEDURE: Operation Date: 08/19/23 08:20 Proposed Procedures p Hardware Removal Left Foot(Left) - Hu Pulido DPM s ORIF Foot Left Second Toe(Left) - Hu Pulido DPM
--- NOTE | 2023-08-19 07:32 | P.ANESASSM_ITS ---
Pre-Anesthetic Assessment Height/Weight: Height 1.68 m Weight 122.47 kg Temp Pulse Resp BP Pulse Ox O2 Del Method 98.1 F 87 16 149/85 98 Room Air 08/19/23 07:06 08/19/23 07:06 08/19/23 07:06 08/19/23 07:06 08/19/23 07:06 08/19/23 07:06 Preop Diagnosis: Painful hardware and left second toe fracture Operation Date: 08/19/23 08:20 Proposed Procedures p Hardware Removal Left Foot(Left) - Hu Pulido DPM s ORIF Foot Left Second Toe(Left) - Hu Pulido DPM Familial anesthetic complications: Nausea Was Beta Preston taken within 24 hours: Yes Was Clonidine taken within 24 hours: N/A Last intake: Intake Last Liquid Date 08/18/23 Last Liquid Time 18:00 Last Solid Date 08/18/23 Last Solid Time 18:00 Social No alcohol and No tobacco former smoker Exam alert, oriented x 3, clear to auscultation bilaterally and regular rate & rhythm Airway Cervical ROM: within normal limits Mallampati: Class IV Dentition: false Comments: Comments: small mouth opening, large neck circumference CV/HEM Hypertension GI Gastroesophageal Reflux Disease Metabolic Morbid Obesity Anesthetic Plan ASA status: 3 Anesthesia: MAC Risk of > 500 ml blood loss (7ml/kg in children): No Medications/Allergies Home Medications Medication Instructions Recorded Confirmed Last Taken Type buspirone 15 mg tablet 15 mg PO BID #60 tabs 08/29/19 08/18/23 08/18/23 Rx cyclobenzaprine 10 mg tablet 10 mg PO TID #90 tabs 08/29/19 08/18/23 08/18/23 Rx dexlansoprazole 60 mg 60 mg PO QDAY #30 caps 08/29/19 08/18/23 08/18/23 Rx capsule,biphase delayed release (Dexilant) furosemide 20 mg tablet 20 mg PO QAM PRN edema #30 tabs 08/29/19 08/18/23 08/11/23 Rx potassium chloride 10 mEq 10 meq PO QDAY PRN edema #30 tabs 08/29/19 08/18/23 08/11/23 Rx tablet,extended release venlafaxine 150 mg tablet,extended 150 mg PO QDAY #30 tabs 08/29/19 08/18/2324 Rx release 24 hr beclomethasone dipropionate 40 2 spray intranasal DAILY 06/23/21 08/18/23 08/18/23 History mcg/actuation nasal HFA inhaler fluticasone propionate 50 1 spray intranasal DAILY 06/23/21 08/18/23 06/08/23 History mcg/actuation nasal spray,suspension gabapentin 600 mg tablet 800 mg PO BID 06/23/21 08/18/23 08/18/23 History metoprolol succinate 25 mg 12.5 mg (1/2 x 25 mg) PO DAILY #45 06/23/21 08/18/23 08/18/23 Rx tablet,extended release 24 hr tabs quetiapine 100 mg tablet 300 mg PO DAILY 06/23/21 08/18/23 08/18/23 History mupirocin 2 % topical ointment 1 applic topical TID #22 grams 10/11/22 08/18/23 Unknown Rx loratadine 10 mg tablet 10 mg PO DAILY 01/20/23 08/18/23 08/18/23 History toe alignment splint #1 ea 06/22/23 07/21/23 Unknown Rx Allergies Allergy/AdvReac Type Severity Reaction Status Date / Time adhesive Allergy Mild Unknown Verified 08/19/23 07:00 Penicillins Allergy rash Verified 08/19/23 07:00 Current Medications Generic Name Dose Route Start Last Admin Trade Name Freq PRN Reason Stop Dose Admin Sodium Chloride 1,000 mls @ 30 mls/hr 08/19/23 07:00 08/19/23 07:25 Sodium Chloride 0.9% IV 08/20/23 06:59 30 mls/hr .Q24H SIVA Administration PFS Anesthesia Medical History (Updated 07/24/23 @ 08:40 by Hu Pulido DPM) Left foot pain Arthritis of left knee Family History Father CAD (coronary artery disease) Other Hypertension Social History Smoking and tobacco/nicotine status: current every day tobacco/nicotine user (1ppd X41) cigarettes Alcohol intake: never Substance/Drug Use: never Current occupational status: disabled Data Anesthesia 08/19/23 07:20 Cardiac Studies: 2 Cardiac Event Monitor 06/02/21
[2023-08-19] MEDS: clindamycin 600 MG/50 ML PREMIX 100 MG IV (07:46)
[2023-08-19 07:49] LABS: Anion Gap 15.4 (5-19); Blood Urea Nitrogen 20 mg/dL (8-23); Calcium 9.5 mg/dL (8.5-10.5); Carbon Dioxide 26 mmol/L (22-29); Chloride 101 mmol/L (98-107); Glomerular Filtration Rate 41.2 mL/min (90-130); Glucose 99 mg/dL (65-115); Osmolality Calculated 289 mOsm/kg (285-295); Potassium 4.4 mmol/L (3.5-5.1); Sodium 138 mmol/L (136-145)
[2023-08-19] MEDS: BUPivacaine 0.5% INJ 10 mL INJECTION (08:04)
[2023-08-19] MEDS: BUPivacaine liposome 13.3 mg/mL SDV 10 mL 133 MG INFILTRATI (08:05)
--- NOTE | 2023-08-19 08:41 | W.PM.BPON ---
Date of Procedure: 08/19/23 Surgeon: Hu Pulido DPM Lead Shop Operator(s): Jaquan Neil Procedure(s) performed: Deep hardware removal left foot. Open reduction internal fixation left second toe Findings of the procedure(s): Left second toe fracture Estimated blood loss: 2 mL Specimen(s) removed: None Post-operative diagnosis: Painful retained hardware and fracture left second toe. Patient tolerated procedure and anesthesia well, no complications.
--- NOTE | 2023-08-19 08:44 | P.OP_ITS ---
Operative Report Date of procedure: August 19, 2023 Pre-op diagnosis: Painful hardware left foot. Proximal phalanx fracture left second toe. Post-op diagnosis: Same Procedure done: Hardware removal left foot. CPT code 61984 Open reduction internal fixation left second toe proximal phalanx. CPT code 42050 Surgeon: Hu Pulido DPM Garment Liner: Jolynn Partida Estimated blood loss: 2 25
--- NOTE | 2023-08-19 08:44 | PM.OP ---
Operative Report Date of procedure: August 19, 2023 Pre-op diagnosis: Painful hardware left foot. Proximal phalanx fracture left second toe. Post-op diagnosis: Same Procedure done: Hardware removal left foot. CPT code 83721 Open reduction internal fixation left second toe proximal phalanx. CPT code 34727 Surgeon: Hu Pulido DPM Internet Application Developer: Jolynn Partida Estimated blood loss: 2 25
--- NOTE | 2023-08-19 08:58 | PM.OP ---
Operative Report Date of procedure: September 04, 2023 Pre-op diagnosis: Painful hardware left foot. Proximal phalanx fracture left second toe. Post-op diagnosis: Same Post-op findings: Same Procedure done: Deep hardware removal left foot. CPT code 58457 Open reduction internal fixation of left second toe proximal phalanx. CPT code 24143 Implants: Silver Plume 2 mm screw, headed, partially-threaded, cannulated 4-0 Vicryl 4-0 nylon Specimens removed/disposition: None Pathology: None Surgeon: Hu Pulido DPM [place] Operator: Jaquan Neil Estimated blood loss: 2 25 IV fluids: 0 Urine output: 0 Complications: None Brief History: Reviewed x-rays taken today of left foot -Fracture of the left second toe intermediate phalanx -hardware in left great toe is stable and intact Discussed surgical revision with a pin or screw I reviewed at length with the patient, the risks, potential complications, benefits, alternatives, expectations, and typical outcomes associated with the surgery. The risks and potential complications were explained in detail, including but not limited to infection, wound dehiscence or soft tissue complications, bleeding and hematoma, chronic edema, neuritis or nerve damage producing numbness or chronic pain, CRPS, failure to relieve pain or worsening pain, thick / painful / unsightly scar, limited motion / stiffness, malposition, delayed union, malunion, or nonunion, fracture, reaction to implants, anesthetic complications, venous thromboembolism, and deformity recurrence. I discussed the notion of no regrets with the patient as it pertains to complications and outcomes. The patient seemed to understand the nature of the proposed care and required convalescence. They asked appropriate questions, answered to their satisfaction. They are aware no guarantees can be made as to a satisfactory outcome and they understand there may be other possible unforeseen complications or outcomes not listed here that will be treated accordingly if they arise. There were no written or implied guarantees given to the patient. They gave informed consent to proceed. Procedure: Under mild sedation the patient was brought to the operating room and remained on the gurney in supine position. A timeout was performed. Anesthesia was then administered by the anesthesia service. Local anesthesia was injected by myself consisting of 10 cc of 0.5% Marcaine plain and 10 cc of Exparel about the second ray with Marcaine and a second ray block fashion with, left foot and subcutaneously in a grid like fashion with Exparel proximal to the operative site. Well-padded pneumatic tourniquet was applied to the left ankle. Left lower extremity was then scrubbed, prepped and draped utilizing normal aseptic technique. Left foot was exsanguinated with an Esmarch bandage and the tourniquet was inflated to 250 mmHg. Attention was directed to the left second toe where a sagittal plane contracture with flexion at the proximal to phalangeal joint was appreciated. A linear longitudinal incision was made directly over the left second proximal interphalangeal joint through skin with #15 blade with dissection carried down to the layer of extensor tendon which was transected transversely and reflected proximally gaining access to the left second toe proximal phalanx and intermediate phalanx. Care was taken to retract and preserve neurovascular and tendinous structures. All bleeders were ligated and cauterized as necessary. Head of the proximal phalanx was noted to have a fracture, the intramedullary implant was attempted to be explanted, the implant required a cut at the level of the hallux interphalangeal joint and the distal stem was removed and passed to operative field, proximal stem within the diaphysis of the proximal phalanx was unable to be retrieved. The incision was irrigated with saline solution. Because the implant was hollow a K wire was integrated at the base of the intermediate phalanx at the distal aspect of the left second toe and then integrated through the intramedullary canal and within the implan of the left second toe proximal phalanx down to the base of the phalanx without crossing the metatarsal phalangeal joint. Fracture was then fixated utilizing a Silver Plume 2 mm headed screw with excellent bony apposition and compression noted and a rectus second toe was appreciated. The incision was irrigated with saline solution and extensor tendon was reapproximated utilizing 4-0 Vicryl. Subcutaneous tissue was reapproximated utilizing 4-0 Vicryl and skin with 4-0 nylon. The incision was then dressed with Adaptic, sterile 4 x 4's, Kerlix and Garth wrap. Postop shoe was applied to the left foot. Tourniquet was then deflated and a prompt hyperemic response was noted to the distal digits of the left foot. Patient tolerated the procedure and anesthesia well and was transferred to the PACU with vital signs stable and vascular status intact. Following a period of postoperative monitoring he will she will be discharged home, may be weightbearing as tolerated below threshold of pain with postop shoe. Was given at home care instructions, scheduled follow-up and my cell phone number to contact with any postoperative questions or concerns.
[2023-08-19] MEDS: HYDROcodone-acetaminophen 10-325 mg Tablet 1 TAB PO (09:21)
--- NOTE | 2023-08-19 09:45 | ANE.PACU2 ---
Inpatient post-anesthesia follow up: Airway intact: Yes Vital signs: Temperature 97.8 F Pulse Rate 87 Respiratory Rate 17 Blood Pressure 118/62 Pulse Oximetry 97 Oxygen Delivery Me thod Room Air Oxygen Flow Rate 6 Fraction of Inspir ed Oxygen Hydration adequate: Yes Nausea and vomiting: No Pain level: 1 Mental status: Baseline
== END 2023-08-19 09:49 | disposition home or self-care (01) ==
PROVIDERS: Anesthesiology; PCP Nurse Practitioner Family; Visit Provider Podiatrist Foot & Ankle Surgery
PROC: (CPT 20680; principal; 2023-08-19 08:10)
PROC: (CPT 20680; 2023-08-19 08:10)
DX: T84.84XA Pain due to internal orthopedic prosthetic devices, implants and grafts, initial encounter (principal); S92.512A Displaced fracture of proximal phalanx of left lesser toe(s), initial encounter for closed fracture; X58.XXXA Exposure to other specified factors, initial encounter; Y83.8 Other surgical procedures as the cause of abnormal reaction of the patient, or of later complication, without mention of misadventure at the time of the procedure; I10 Essential (primary) hypertension; K21.9 Gastro-esophageal reflux disease without esophagitis; E66.01 Morbid (severe) obesity due to excess calories; Z68.41 Body mass index [BMI] 40.0-44.9, adult; F17.210 Nicotine dependence, cigarettes, uncomplicated
CPT/HCPCS: 20680; 28525; 36415; 73620; 76000; 80048; C1713; C9290; J2704; J3010; J3490; J7030

== ENCOUNTER → 2023-08-29 08:49 | Outpatient (BNVA) | payer MEDICARE, MEDICAID, SELFPAY | PROVIDERS: PCP Nurse Practitioner Family; Visit Provider Podiatrist Foot & Ankle Surgery | DX: Z98.890 Other specified postprocedural states (principal); S92.502D Displaced unspecified fracture of left lesser toe(s), subsequent encounter for fracture with routine healing; X58.XXXD Exposure to other specified factors, subsequent encounter | CPT/HCPCS: 99024 ==

== ENCOUNTER → 2023-09-01 13:49 | Outpatient (BNVA) | payer MEDICARE, MEDICAID, SELFPAY | PROVIDERS: PCP Nurse Practitioner Family; Visit Provider Podiatrist Foot & Ankle Surgery | DX: Z98.890 Other specified postprocedural states (principal) | CPT/HCPCS: 73630; 99024 ==

== ENCOUNTER → 2023-10-05 08:16 | Outpatient (BNVA) | payer MEDICARE, MEDICAID, SELFPAY | PROVIDERS: PCP Nurse Practitioner Family; Visit Provider Podiatrist Foot & Ankle Surgery | DX: Z98.890 Other specified postprocedural states (principal) | CPT/HCPCS: 73562; 73630; 99024 ==

== ENCOUNTER 2023-10-05 08:44 | Outpatient (CLI) | payer MEDICARE, MEDICAID, SELFPAY ==
--- NOTE | 2023-10-05 08:53 | XRR_ITS ---
PROCEDURE INFORMATION: Exam: XR Left Knee Exam date and time: 10/05/2023 9:15 AM Age: 63 years old Clinical indication: Injury or trauma; Fall; Blunt trauma; Knee; Left; Injury date: 6 months ago; Prior surgery; Surgery date: 6+ months; Surgery type: Scope years ago; Additional info: L knee pain TECHNIQUE: Imaging protocol: Radiologic exam of the left knee. Views: 3 views. COMPARISON: CR XR knees AP WB w LT lmt ORTH 10/15/2019 9:20 AM FINDINGS: Bones/joints: There is no evidence for acute fracture or dislocation. Overall bone mineralization is within normal limits. The joint spaces are generally preserved. Patellar enthesopathy is present. Soft tissues: Normal. XR/XR knee LT 3V* [id number] IMPRESSION: No acute process in the left knee.
== END 2023-10-05 08:45 | disposition home or self-care (01) ==
LOC: RAD 08:46
PROVIDERS: PCP Nurse Practitioner Family; Visit Provider Nurse Practitioner Family
DX: Z98.890 Other specified postprocedural states (principal)
CPT/HCPCS: 73562; 99024

== ENCOUNTER → 2023-11-14 07:43 | Outpatient (BNVA) | payer MEDICARE, MEDICAID, SELFPAY | PROVIDERS: PCP Nurse Practitioner Family; Visit Provider Podiatrist Foot & Ankle Surgery | DX: Z98.890 Other specified postprocedural states (principal); M17.12 Unilateral primary osteoarthritis, left knee; S60.211A Contusion of right wrist, initial encounter; W19.XXXA Unspecified fall, initial encounter | CPT/HCPCS: 73130; 73560; 73565; 73630; 99024; 99204 ==

== ENCOUNTER 2024-01-03 07:43 | Outpatient (CLI) | payer MEDICARE, MEDICAID, SELFPAY ==
--- NOTE | 2024-01-03 07:47 | MR_ITS ---
WS: [id number] MRI LEFT KNEE NONCONTRAST FOLLOWED BY ARTHROGRAM TECHNIQUE: Axial PD, coronal PD fat sat, coronal PD, sagittal PD, and sagittal PD fat-sat images obta ined. Post arthrogram images CLINICAL INFORMATION: M25.569 - Pain in unspecified knee COMPARISON: None. FINDINGS: Distal quadriceps and patella tendons are intact. Normal ACL and PCL. Hypertrophic patella. Small sup rapatellar effusion. Grade III chondromalacia patella worse involving the lateral patellar facet. Med ial and lateral patellar retinaculum appear intact. Chronic thinning of the medial and lateral meniscus. Grade 2-3 chondromalacia in the medial and late ral joint compartments. No subchondral edema. No bone marrow edema in the femoral condyles or tibial plateau. Fibula head is normal in appearance. Normal popliteal fossa. Post arthrogram images demonstrate grade 3 chondromalacia patella with chondral fissuring. Medial and lateral meniscus appear intact. No acute appearing meniscal tears. ACL and PCL appear intact. Poplit eus appears intact. Normal medial and lateral collateral ligaments. No other suspicious findings. MR/MR knee LT wo/w con [id number] IMPRESSION: 1. Normal ACL and PCL. 2. No acute appearing meniscal tears. Chronic thinning of the medial and later al meniscus with slight peripheral extrusion. 3. Grade III chondromalacia patella worse in the lateral patellar facet. Small suprapatellar effusion. Hypertrophic patella. 4. Grade 2-3 chondromalacia medial and lateral joint compartments. 5. No other acute findings. Outbridge grading: grade III: partial-thickness cartilage loss with focal ulcer ation
--- NOTE | 2024-01-03 08:30 | IR_ITS ---
WS: [id number] LEFT KNEE ARTHROGRAM Fluoroscopic guided left knee arthrogram. CLINICAL INFORMATION: pain TECHNIQUE: The procedure including risks, benefits, and complications were discussed with the patient , who agreed to proceed. Timeout was performed. Using sterile technique, the patient was prepped and draped in the usual sterile fashion. After 1% lidocaine injection using fluoroscopic guidance, a 22-g auge spinal needle was advanced into the left patellofemoral compartment. Subsequently 45 cc of a mix ture containing 5 cc 1% lidocaine, 20 cc normal saline, 20 cc Omnipaque 240, and 0.2 cc gadolinium wa s administered. No immediate complications. FLUOROSCOPY TIME: 1min [id number] # of spot films: 3 IR/[place] [id number] IMPRESSION: Uncomplicated left knee fluoroscopic guided arthrogram. MRI to follow.
[2024-01-03] MEDS: gadobenate dimeglumine 20 mL vial 0.200000000000000011 ML XX (10:25)
[2024-01-03] MEDS: iohexol 240 mg/mL 50 mL Btl 20 ML INTRA-ARTI (10:27)
== END 2024-01-03 07:44 | disposition home or self-care (01) ==
LOC: RAD 07:44
PROVIDERS: PCP Nurse Practitioner Family; Visit Provider Specialist
DX: M17.12 Unilateral primary osteoarthritis, left knee (principal); M23.301 Other meniscus derangements, unspecified lateral meniscus, left knee; M23.304 Other meniscus derangements, unspecified medial meniscus, left knee; M94.29 Chondromalacia, multiple sites
CPT/HCPCS: 27369; 73723; 77002; A9577; Q9966

== ENCOUNTER → 2024-01-23 08:21 | Outpatient (BNVA) | payer MEDICARE, MEDICAID, SELFPAY | PROVIDERS: PCP Nurse Practitioner Family; Visit Provider Specialist | DX: M94.262 Chondromalacia, left knee | CPT/HCPCS: 99214 ==

== ENCOUNTER 2024-06-29 10:06 | Emergency (ER) | payer MEDICARE, MEDICAID, SELFPAY ==
[2024-06-29 10:17] VITALS: BP 176/64; PULSE 116; RESP 20; TEMP 36.9; O2SAT 97; BMI 44.5
[2024-06-29 10:23] VITALS: BP 176/64; PULSE 97; RESP 18; O2SAT 97
--- NOTE | 2024-06-29 10:33 | XRR_ITS ---
PROCEDURE INFORMATION: Exam: XR Right Knee Exam date and time: 06/29/2024 10:38 AM Age: 64 years old Clinical indication: Injury or trauma; Fall; Blunt trauma; Knee; Right; Additional info: Fall pain TECHNIQUE: Imaging protocol: Radiologic exam of the right knee. Views: 3 views. COMPARISON: CR XR foot RT min 3V* [id number] 03/07/2023 3:32 PM FINDINGS: Bones/joints: Slight marginal spurring and articular surface narrowing.. No fracture or dislocation. No acute osseous, joint, or soft tissue abnormality. Soft tissues: Normal. XR/XR knee RT 3V* [id number] IMPRESSION: Slight degenerative changes.
--- NOTE | 2024-06-29 10:34 | ED_ITS ---
HPI - Extremity Problem General: Chief complaint: Extremity Injury, Lower Stated complaint: Fell right knee injury Time Seen by Provider: 06/29/24 10:18 History of Present Illness: Presents to the ER with right medial knee pain. Worse when she puts any weight on it. Patient fell about 2 weeks ago and was seen at [facility] ER and had an x-ray. Patient said the pain is gotten increasingly worse. Patient has mild swelling. Patient is been using [id number] ibuprofen and Tylenol. Patient had no pain in the knee before the fall. Patient is still ambulatory. Related Data Home Medications Medication Instructions Recorded Confirmed fluticasone propionate 50 1 spray intranasal DAILY PRN 06/23/21 06/29/24 mcg/actuation nasal allergies spray,suspension loratadine 10 mg tablet 10 mg PO DAILY 01/20/23 06/29/24 buspirone 30 mg tablet 30 mg PO BID 06/29/24 06/29/24 diclofenac sodium 75 mg 75 mg PO BID 06/29/24 06/29/24 tablet,delayed release gabapentin 800 mg tablet 800 mg PO TID 06/29/24 06/29/24 glycopyrrolate 2 mg tablet 2 mg PO DAILY 06/29/24 06/29/24 ketoconazole 2 % topical cream 1 applic topical BID PRN Skin 06/29/24 06/29/24 Irritation montelukast 10 mg tablet 10 mg PO DAILY 06/29/24 06/29/24 olopatadine 0.1 % eye drops 1 drp ophthalmic (eye) BID 06/29/24 06/29/24 (Pataday Twice Daily Relief) quetiapine 400 mg tablet 400 mg PO BEDTIME 06/29/24 06/29/24 ropinirole 3 mg tablet See Rx Instructions .Route .COMPLEX 06/29/24 06/29/24 sumatriptan succinate 50 mg tablet See Rx Instructions .Route .COMPLEX 06/29/24 06/29/24 Previous Rx's Medication Instructions Recorded cyclobenzaprine 10 mg tablet 10 mg PO TID #90 tabs 08/29/19 dexlansoprazole 60 mg 60 mg PO QDAY #30 caps 08/29/19 capsule,biphase delayed release (Dexilant) furosemide 20 mg tablet 20 mg PO QAM PRN edema #30 tabs 08/29/19 potassium chloride 10 mEq 10 meq PO QDAY PRN edema #30 tabs 08/29/19 tablet,extended release venlafaxine 150 mg tablet,extended 150 mg PO QDAY #30 tabs 08/29/19 release 24 hr metoprolol succinate 25 mg 12.5 mg (1/2 x 25 mg) PO DAILY #45 06/23/21 tablet,extended release 24 hr tabs toe alignment splint #1 ea 06/22/23 meloxicam 7.5 mg tablet 7.5 mg PO .Twice daily #14 tabs 06/29/24 Allergies Allergy/AdvReac Type Severity Reaction Status Date / Time adhesive Allergy Mild Unknown Verified 01/23/24 08:33 Penicillins Allergy rash Verified 01/23/24 08:33 Review of Systems General: Reports: 10 or more systems reviewed and unremarkable except in HPI and below PFSH ED PFSH: Medical History Left foot pain Arthritis of left knee Surgical History S/P foot surgery Family History Father CAD (coronary artery disease) Other Hypertension Social History Smoking and tobacco/nicotine status: current every day tobacco/nicotine user (1ppd X41) cigarettes Alcohol intake: never Substance/Drug Use: never Current occupational status: disabled Physical Exam Const: COMMON NORMALS: no acute distress, average body habitus, patient oriented x3, no limitations, healthy appearing, alert and well nourished HENMT: COMMON NORMALS: normocephalic, atraumatic, hearing grossly normal bilaterally, external ears normal, Normal external nose present and moist oral mucous membranes HEAD & SCALP: normocephalic and atraumatic NOSE: Normal external nose present EXTERNAL EAR: Yes external ears normal Neck/C-Spine: COMMON NORMALS: no JVD Resp: COMMON NORMALS: normal respiratory effort, No retractions, No use of accessory muscles and clear to auscultation bilaterally AUSCULTATION: clear to auscultation bilaterally Cardio: COMMON NORMALS: no JVD, regular rate, regular rhythm, S1 normal heart sound present, S2 normal heart sound present, No gallops present (Cardio), No clicks present (Cardio), No murmurs present (Cardio) and No rub (Cardio) RATE : regular rate RHYTHM: regular rhythm HEART SOUNDS: S1 normal heart sound present and S2 normal heart sound present GI: COMMON NORMALS: Normal to inspection, nondistended, normoactive bowel sounds present, Soft to palpation, non-tender, No hepatosplenomegaly present and no masses PALPATION: Yes Soft to palpation and Yes No hepatosplenomegaly present Neuro: COMMON NORMALS: patient oriented x3 SENSORIUM/ORIENTATION: Yes alert Course Vital Signs: Vital signs: Vital Signs Temperature 98.5 F 06/29/24 10:17 Pulse Rate 97 06/29/24 10:23 Respiratory Rate 18 06/29/24 10:23 Blood Pressure 176/64 06/29/24 10:23 Pulse Oximetry 97 06/29/24 10:23 Oxygen Delivery Me thod Room Air 06/29/24 10:23 MDM - Extremity (Nontraumatic) Medical Decision Making X-ray was negative. Patient be discharged home to follow-up with PCP for further evaluation and treatment. Patient is already on diclofenac. Medical Records I reviewed the patient's medical records. Lab Data I reviewed the patient's lab results. Radiology Impressions Knee X-Ray 06/29/24 10:33 IMPRESSION: Slight degenerative changes. All radiology interpretation(s) finalized by discharge Discharge Plan Discharge Patient Disposition: Home Clinical Impression: Acute pain of right knee Condition: Stable Prescriptions: New meloxicam 7.5 mg tablet 7.5 mg PO .Twice daily Qty: 14 0RF No Action Dexilant 60 mg capsule,biphase delayed releas 60 mg PO QDAY Qty: 30 5RF cyclobenzaprine 10 mg tablet 10 mg PO TID Qty: 90 4RF furosemide 20 mg tablet 20 mg PO QAM PRN (Reason: edema) Qty: 30 3RF potassium chloride 10 mEq tablet extended release 10 meq PO QDAY PRN (Reason: edema) Qty: 30 3RF venlafaxine 150 mg tablet extended release 24hr 150 mg PO QDAY Qty: 30 4RF fluticasone propionate 50 mcg/actuation spray,suspension 1 spray intranasal DAILY PRN (Reason: allergies) Rx Instructions: administer into each nostril metoprolol succinate 25 mg tablet extended release 24 hr 12.5 mg PO DAILY Qty: 45 3RF (DME) toe alignment splint See Rx Instructions .Route .MEDSUPPLY Qty: 1 0RF Rx Instructions: As directed loratadine 10 mg tablet 10 mg PO DAILY gabapentin 800 mg tablet 800 mg PO TID buspirone 30 mg tablet 30 mg PO BID quetiapine 400 mg tablet 400 mg PO BEDTIME ropinirole 3 mg tablet See Rx Instructions .ROUTE .COMPLEX Rx Instructions: TAKE ONE TABLET BY MOUTH ONE TO THREE HOURS BEFORE BEDTIME. sumatriptan succinate 50 mg tablet See Rx Instructions .ROUTE .COMPLEX Rx Instructions: TAKE ONE TABLET BY MOUTH NEEDED. MAY take second dose at least 2 hours after first dose and UP TO 4 TABLETS PER day NEEDED. olopatadine [Pataday Twice Daily Relief] 0.1 % drops 1 drp ophthalmic (eye) BID diclofenac sodium 75 mg tablet,delayed release (DR/EC) 75 mg PO BID montelukast 10 mg tablet 10 mg PO DAILY ketoconazole 2 % cream 1 applic TOPICAL BID PRN (Reason: Skin Irritation) glycopyrrolate 2 mg tablet 2 mg PO DAILY Discharge Orders: Discharge ED (Routine); Ordered 06/29/24 Ordered By: Roberto Love Referrals: Noemi Tinsley APN [Primary Care Provider] - 1 week Patient Instructions: Knee Pain (ED) Activity Restrictions/Additional Instructions: Your x-ray in ER did not show any acute fractures, did show pretty significant arthritis. You are already on an anti-inflammatory diclofenac. We may try meloxicam as it may work better. It has been sent into your pharmacy. While taking meloxicam do not take the diclofenac. Please follow-up with your family practice physician within next 7 days for further evaluation and treatment as needed. Coding Level of Care Code ED Sheet Combining Operator for Leona Moody
[2024-06-29 12:12] VITALS: BP 135/79; PULSE 84; O2SAT 99
== END 2024-06-29 12:15 | disposition home or self-care (01) ==
PROVIDERS: Emergency Provider Emergency Medicine; PCP Nurse Practitioner Family
DX: M25.561 Pain in right knee (principal); F17.210 Nicotine dependence, cigarettes, uncomplicated
CPT/HCPCS: 73562; 99283